=== PATIENT | male | born 1980 | race African-American/Black ===

== ENCOUNTER 2018-02-05 10:16 | Emergency (ER) | payer SELFPAY ==
[~2018-02-05] VITALS: Ht 172.7 cm; Wt 76.0 kg
[2018-02-05 14:00] VITALS: BP 123/82
== END 2018-02-05 14:12 | disposition home or self-care (01) ==
LOC: ER 10:16
DX: H69.81 Other specified disorders of Eustachian tube, right ear (principal)
CPT/HCPCS: 99283

== ENCOUNTER 2019-05-29 06:22 | Emergency (ER) | payer SELFPAY ==
[~2019-05-29] VITALS: Ht 180.3 cm; Wt 78.0 kg
[2019-05-29] MEDS ORDERED: SODIUM CHLORIDE 0.9% 1,000 ML IV ONE (06:36)
[2019-05-29] MEDS ORDERED: ONDANSETRON HCL 4MG/2ML INJ IV STA (06:36)
[2019-05-29] MEDS ORDERED: MORPHINE SULFATE 4 MG/ML CPJ (NOT FOR IM USE) IV STA (06:36)
[2019-05-29 06:56] LABS: BASOPHILS % 0.8 % (0.0-2.0); EOSINOPHILS % 1.4 % (0.0-5.0); HEMATOCRIT. 36.6 % (42.0-52.0); HEMOGLOBIN. 12.7 g/dL (14.0-18.0); LYMPHOCYTES % 17.1 % (20.0-50.0); MEAN CORPUSCULAR HEMOGLOBIN 34.2 pg (28.0-32.0); MEAN CORPUSCULAR VOLUME 98.4 fL (80.0-94.0); MEAN PLATELET VOLUME 8.2 fl (7.4-10.4); MONOCYTES % 6.2 % (2.0-8.0); NEUTROPHILS % 74.5 % (40.0-76.0); PLATELET 215 x1000/uL (130-400); RED BLOOD CELL COUNT 3.71 mill/uL (4.7-6.1); RED CELL DISTRIBUTION WIDTH 12.8 % (11.6-14.6)
[2019-05-29 07:06] LABS: PROTHROMBIN TIME 10.2 sec (9.6-11.0)
[2019-05-29 07:07] LABS: CHLORIDE 106 mEq/L (98-107)
[2019-05-29 07:12] LABS: ETHANOL BLOOD < 10 mg/dL
[2019-05-29 08:43] LABS: CLARITY URINE CLEAR (CLEAR); COLOR URINE YELLOW (YELLOW); KETONES URINE 1+ (NEGATIVE); LEUKOCYTE ESTERASE URINE NEGATIVE (NEGATIVE); NITRITE URINE NEGATIVE (NEGATIVE); OCCULT BLOOD URINE NEGATIVE (NEGATIVE); PH URINE 5.5 (4.5-8.0); PROTEIN URINE NEGATIVE (NEGATIVE); SPECIFIC GRAVITY URINE 1.047 (1.005-1.030); UROBILINOGEN URINE 0.2 E.U./dL (0.2-1.0)
[2019-05-29 09:00] LABS: *BARBITURATES SCREEN URINE NEGATIVE (NEGATIVE); CANNABINOID URINE SCREEN PRESUMTIVE POSITIVE (NEGATIVE); METHADONE URINE SCREEN NEGATIVE (NEGATIVE); OPIATES URINE SCREEN PRESUMTIVE POSITIVE (NEGATIVE); PHENCYCLIDINE URINE SCREEN NEGATIVE (NEGATIVE)
[2019-05-29 09:01] LABS: *AMPHETAMINES SCREEN URINE NEGATIVE (NEGATIVE); *BENZODIAZEPINES SCREEN URINE NEGATIVE (NEGATIVE); *COCAINE SCREEN URINE NEGATIVE (NEGATIVE)
[2019-05-29] MEDS ORDERED: IOHEXOL-300 100 ML BOTTLE ONE (09:12)
[2019-05-29 10:00] VITALS: BP 117/65
== END 2019-05-29 10:16 | disposition home or self-care (01) ==
LOC: EDBD 06:22 → ER 06:22
DX: R07.89 Other chest pain (principal); R10.12 Left upper quadrant pain; F12.10 Cannabis abuse, uncomplicated; R03.0 Elevated blood-pressure reading, without diagnosis of hypertension
CPT/HCPCS: 36415; 71045; 71260; 74177; 80053; 80305; 80320; 81003; 83690; 85025; 85610; 96374; 96375; 99284; J2270; J2405; J7030; Q9967; G0480

== ENCOUNTER 2019-11-15 16:46 | Emergency (ER) | payer SELFPAY ==
[~2019-11-15] VITALS: Ht 180.3 cm; Wt 77.0 kg
[2019-11-15] MEDS ORDERED: DEXAMETHASONE 4MG TABLET PO ONE (21:15)
[2019-11-15] MEDS ORDERED: AMOXICILLIN/POTASSIUM CLAVULANATE 875/125MG TAB PO ONE (21:15)
[2019-11-15] MEDS ORDERED: MECLIZINE 25MG TABLET PO ONE (21:15)
[2019-11-15 22:28] VITALS: BP 118/71
== END 2019-11-15 22:29 | disposition home or self-care (01) ==
LOC: ER 16:46
DX: J32.9 Chronic sinusitis, unspecified (principal); H69.81 Other specified disorders of Eustachian tube, right ear; H57.11 Ocular pain, right eye; H81.11 Benign paroxysmal vertigo, right ear
CPT/HCPCS: 99284; J8540; J8597

== ENCOUNTER 2021-11-22 11:16 | Emergency (ER) | payer MEDICAID ==
[~2021-11-22] VITALS: Ht 172.7 cm; Wt 75.0 kg
[2021-11-22] MEDS ORDERED: ACETAMINOPHEN WITH CODEINE 300/30MG TABLET PO ONE (11:45)
[2021-11-22] MEDS ORDERED: BACITRACIN ZINC OINT UDPKT TOP ONE ×2 (11:45→13:45)
[2021-11-22] MEDS ORDERED: TETANUS, DIPHTHERIA, PERTUSSIS VAC/PF 0.5ML (>10YR OLD) IM ONE (13:45)
[2021-11-22] MEDS ORDERED: LIDOCAINE HCL/PF 1% 10 MG/ML 5ML VIAL INFIL ONE (13:45)
[2021-11-22] MEDS ORDERED: LIDOCAINE HCL 1% 20ML VIAL (Pyxis) INJ INFIL NR (13:49)
[2021-11-22] MEDS ORDERED: BO1 TP (14:17)
[2021-11-22 14:39] VITALS: BP 113/68
== END 2021-11-22 14:40 | disposition home or self-care (01) ==
LOC: ER 11:16
DX: S61.211A Laceration without foreign body of left index finger without damage to nail, initial encounter (principal); F12.10 Cannabis abuse, uncomplicated; W22.01XA Walked into wall, initial encounter; Y93.89 Activity, other specified; Y92.018 Other place in single-family (private) house as the place of occurrence of the external cause
CPT/HCPCS: 12001; 73130; 90715; 99283; J3490; Z7610

== ENCOUNTER 2023-08-06 12:26 | Emergency (ER) | payer MEDICAID ==
[~2023-08-06] VITALS: Ht 177.8 cm; Wt 79.4 kg
[~2023-08-06 12:26] MED LIST: BO1 TP
[2023-08-06 12:44] VITALS: O2SAT 99
[2023-08-06] MEDS ORDERED: NAPR-681 MT (13:30)
[2023-08-06] MEDS ORDERED: IBUPROFEN 400MG TABLET PO ONE (13:45)
[2023-08-06 17:12] VITALS: BP 129/85; PULSE 78; RESP 18; TEMP 98.1
== END 2023-08-06 17:13 | disposition home or self-care (01) ==
LOC: ER 12:26
DX: S62.232A Other displaced fracture of base of first metacarpal bone, left hand, initial encounter for closed fracture (principal); F12.90 Cannabis use, unspecified, uncomplicated; Y08.89XA Assault by other specified means, initial encounter; Y93.89 Activity, other specified; Y92.89 Other specified places as the place of occurrence of the external cause; Y99.8 Other external cause status
CPT/HCPCS: 29125; 73110; 73140; 99284